=== PATIENT | female | born 1970 | race African-American/Black ===

== ENCOUNTER 2018-05-26 19:14 | Inpatient (IN) | payer OTHER ==
[~2018-05-26] VITALS: Ht 182.9 cm; Wt 105.8 kg
[~2018-05-26 19:14] MED LIST: ETOMIDATE 2MG/ML 10ML VIAL IV ONE; VITAMINS
[2018-05-26] MEDS ORDERED: SODIUM CHLORIDE 0.9% 1,000 ML IV SCH (19:16)
[2018-05-26] MEDS ORDERED: ALBUTEROL (0.083%) 2.5MG/3ML NEB HHN STA (19:19)
[2018-05-26] MEDS ORDERED: MAGNESIUM 2 G PREMIX 50 ML IV STA (19:19)
[2018-05-26] MEDS ORDERED: IPRATROPIUM BROMIDE (0.02%) 0.5MG/2.5ML NEB HHN STA (19:19)
[2018-05-26] MEDS ORDERED: EPINEPHRINE 1:1000 1 MG/ML AMP ONE (19:26)
[2018-05-26] MEDS ORDERED: DIPHENHYDRAMINE 50MG/ML VIAL IV ONE (19:30)
[2018-05-26] MEDS ORDERED: EPINEPHRINE 1:1000 1 MG/ML AMP IM ONE (19:30)
[2018-05-26] MEDS ORDERED: METHYLPREDNISOLONE SOD SUCC 125 MG/2 ML VIAL IV ONE (19:30)
[2018-05-26] MEDS ORDERED: ACETAMINOPHEN 650MG SUPP PR ONE (19:30)
[2018-05-26] MEDS ORDERED: FAMOTIDINE 20MG/2ML VIAL IV ONE (19:30)
[2018-05-26] MEDS ORDERED: ETOMIDATE 2MG/ML 10ML VIAL IV ONE (19:50)
[2018-05-26] MEDS ORDERED: SUCCINYLCHOLINE CHLORIDE 200MG/10ML IV ONE (19:50)
[2018-05-26 19:51] LABS: BASOPHILS % 0.3 % (0.0-2.0); EOSINOPHILS % 0.7 % (0.0-5.0); HEMATOCRIT. 47.5 % (36.0-48.0); HEMOGLOBIN. 15.3 g/dL (12.0-16.0); LYMPHOCYTES % 45.7 % (20.0-50.0); MEAN CORPUSCULAR HEMOGLOBIN 29.8 pg (28.0-32.0); MEAN CORPUSCULAR VOLUME 92.4 fL (81.0-99.0); MEAN PLATELET VOLUME 9.1 fl (7.4-10.4); MONOCYTES % 7.2 % (2.0-8.0); NEUTROPHILS % 46.1 % (40.0-76.0); PLATELET 356 x1000/uL (130-400); RED BLOOD CELL COUNT 5.14 mill/uL (4.2-5.4)
[2018-05-26 19:57] LABS: PROTHROMBIN TIME 10.2 sec (9.1-11.1)
[2018-05-26 20:00] LABS: CHLORIDE 107 mEq/L (98-107)
[2018-05-26] MEDS ORDERED: MIDAZOLAM HCL 2 MG/2 ML VIAL IV ONE (20:00)
[2018-05-26 20:02] LABS: HCG SCREEN NEGATIVE
[2018-05-26 20:05] LABS: ETHANOL BLOOD 56 mg/dL
[2018-05-26] MEDS ORDERED: MIDAZOLAM HCL 2 MG/2 ML VIAL ONE (20:07)
[2018-05-26] MEDS ORDERED: PROPOFOL 200MG/20ML VIAL IV ONE (20:30)
[2018-05-26] MEDS ORDERED: PIPERACILLIN/TAZ 3.375G PREMIX 50 ML IV ONE (20:45)
[2018-05-26] MEDS ORDERED: VANCOMYCIN 1 G PREMIX 200 ML IV ONE (20:45)
[2018-05-26 20:59] LABS: BG BASE EXCESS -6.2 mmol/L (-2.0-2.0); BG CARBOXYHEMOGLOBIN 0.5 % (0.5-1.5); BG DEOXYHEMOGLOBIN 0.6 % (0.0-5.0); BG FRACTION INSPIRED OXYGEN 100; BG HCO3 ACT 20.9 mmol/L (22.0-26.0); BG METHEMOGLOBIN 0.6 % (0.0-1.5); BG OXYGEN SATURATION 99.4 % (92.0-98.5); BG OXYHEMOGLOBIN 98.3 % (94.0-97.0); BG PCO2 46.9 mmHg (35.0-45.0); BG PH 7.266 (7.350-7.450); BG SAMPLE SITE RIGHT RADIAL; BG TIDAL VOLUME(mL) 500 mL; BG TOTAL HEMOGLOBIN 15.2 g/dL (12.0-18.0); BG VENT MODE VENT - A/C; BG VENT RATE 14 set
[2018-05-26] MEDS ORDERED: PIPERACILLIN/TAZ 3.375G PREMIX 50 ML IV SCH (21:15)
[2018-05-26] MEDS ORDERED: LORAZEPAM 2MG/ML CPJ IV PRN (21:15)
[2018-05-26] MEDS ORDERED: PROPOFOL 10MG/ML 100ML 100 ML IV ONE (21:15)
[2018-05-26] MEDS ORDERED: ONDANSETRON HCL 4MG/2ML INJ IV PRN (21:15)
[2018-05-26 21:51] LABS: CLARITY URINE CLEAR (CLEAR); COLOR URINE YELLOW (YELLOW); KETONES URINE NEGATIVE (NEGATIVE); LEUKOCYTE ESTERASE URINE NEGATIVE (NEGATIVE); NITRITE URINE NEGATIVE (NEGATIVE); OCCULT BLOOD URINE 2+ (NEGATIVE); PROTEIN URINE 2+ (NEGATIVE); SPECIFIC GRAVITY URINE 1.013 (1.005-1.030); UROBILINOGEN URINE 0.2 E.U./dL (0.2-1.0)
[2018-05-26 22:05] LABS: CREATINE KINASE MB FRACTION 3.6 ng/mL (0.5-3.6)
[2018-05-26] MEDS ORDERED: SODIUM CHLORIDE 0.9% 1000ML BAG (SEPSIS BOLUS) IV ONE (22:15)
[2018-05-26 22:27] LABS: *AMPHETAMINES SCREEN URINE NEGATIVE (NEGATIVE); *BARBITURATES SCREEN URINE NEGATIVE (NEGATIVE)
[2018-05-26 22:28] LABS: *BENZODIAZEPINES SCREEN URINE PRESUMTIVE POSITIVE (NEGATIVE); *COCAINE SCREEN URINE PRESUMTIVE POSITIVE (NEGATIVE); CANNABINOID URINE SCREEN NEGATIVE (NEGATIVE); METHADONE URINE SCREEN NEGATIVE (NEGATIVE); OPIATES URINE SCREEN NEGATIVE (NEGATIVE); PHENCYCLIDINE URINE SCREEN NEGATIVE (NEGATIVE)
[2018-05-26 23:40] VITALS: BP 148/135
[2018-05-26 23:46] VITALS: BP 142/92
[2018-05-27] VITALS (47 sets, daily range): BP systolic 114–192; BP diastolic 54–155
[2018-05-27] MEDS: DEXT 5%/0.45% NACL KCL 10MEQ/L 1,000 ML IV SCH ×2 (01:48→18:00)
[2018-05-27] MEDS ORDERED: FENTANYL CITRATE/PF 500 MCG in SODIUM CHLORIDE 0.9% 40 ML IV PRN (03:15)
[2018-05-27] MEDS ORDERED: ONDANSETRON HCL 4MG/2ML INJ IV PRN (03:15)
[2018-05-27] MEDS ORDERED: HYDRALAZINE 20MG/ML VIAL IV PRN (03:15)
[2018-05-27] MEDS: PROPOFOL 10MG/ML 100ML 100 ML IV PRN ×2 (03:53→07:24)
[2018-05-27] MEDS ORDERED: VANCOMYCIN 1 G PREMIX 200 ML IV SCH (04:00)
[2018-05-27 05:47] LABS: HEMATOCRIT. 43.7 % (36.0-48.0); HEMOGLOBIN. 14.3 g/dL (12.0-16.0); MEAN CORPUSCULAR VOLUME 91.9 fL (81.0-99.0); MEAN PLATELET VOLUME 9.4 fl (7.4-10.4); PLATELET 272 x1000/uL (130-400); RED BLOOD CELL COUNT 4.76 mill/uL (4.2-5.4)
[2018-05-27] MEDS ORDERED: PIPERACILLIN/TAZ 3.375G PREMIX 50 ML IV SCH (06:00)
[2018-05-27 06:02] LABS: CHLORIDE 111 mEq/L (98-107)
[2018-05-27 06:27] LABS: CREATINE KINASE MB FRACTION 6.5 ng/mL (0.5-3.6)
[2018-05-27 06:38] LABS: CREATINE KINASE 5236 IU/L (26-192)
[2018-05-27 08:02] LABS: BG BASE EXCESS -4.2 mmol/L (-2.0-2.0); BG CARBOXYHEMOGLOBIN 0.3 % (0.5-1.5); BG DEOXYHEMOGLOBIN 1.8 % (0.0-5.0); BG HCO3 ACT 21.3 mmol/L (22.0-26.0); BG METHEMOGLOBIN 0.3 % (0.0-1.5); BG OXYGEN SATURATION 98.2 % (92.0-98.5); BG OXYHEMOGLOBIN 97.6 % (94.0-97.0); BG PCO2 40.9 mmHg (35.0-45.0); BG PH 7.335 (7.350-7.450); BG PO2 129.9 mmHg (75.0-100.0); BG SAMPLE SITE RIGHT RADIAL; BG TIDAL VOLUME(mL) 500 mL; BG VENT MODE VENT - A/C; BG VENT RATE 18 set
[2018-05-27] MEDS: ENOXAPARIN 30MG/0.3ML SYR SUBCUT SCH ×2 (09:58→21:05)
[2018-05-27 10:13] LABS: PLATELET ESTIMATE NORMAL
[2018-05-27 12:20] LABS: BG BASE EXCESS -2.1 mmol/L (-2.0-2.0); BG CARBOXYHEMOGLOBIN 0.2 % (0.5-1.5); BG CPAP (cmH2O) 0 cm(H2O); BG DEOXYHEMOGLOBIN 3.3 % (0.0-5.0); BG METHEMOGLOBIN 0.2 % (0.0-1.5); BG OXYGEN SATURATION 96.7 % (92.0-98.5); BG OXYHEMOGLOBIN 96.3 % (94.0-97.0); BG PCO2 40.5 mmHg (35.0-45.0); BG PH 7.372 (7.350-7.450); BG PO2 86.6 mmHg (75.0-100.0); BG SAMPLE SITE RIGHT RADIAL; BG TOTAL HEMOGLOBIN 14.7 g/dL (12.0-18.0); BG VENT MODE VENT - CPAP
[2018-05-27] MEDS: PIPERACILLIN/TAZ 3.375G PREMIX 50 ML IV SCH ×2 (13:24→17:00)
[2018-05-27] MEDS: VANCOMYCIN 1500MG in DEXTROSE 5% WATER 250ML IV SCH (18:00)
[2018-05-28] VITALS (20 sets, daily range): BP systolic 98–146; BP diastolic 70–98
[2018-05-28] MEDS: PIPERACILLIN/TAZ 3.375G PREMIX 50 ML IV SCH ×3 (00:26→11:56)
[2018-05-28] MEDS: VANCOMYCIN 1500MG in DEXTROSE 5% WATER 250ML IV SCH (06:46)
[2018-05-28] MEDS: ENOXAPARIN 30MG/0.3ML SYR SUBCUT SCH (09:24)
[2018-05-28 09:50] LABS: BASOPHILS % 0.3 % (0.0-2.0); EOSINOPHILS % 0.3 % (0.0-5.0); HEMATOCRIT. 38.8 % (36.0-48.0); HEMOGLOBIN. 12.8 g/dL (12.0-16.0); LYMPHOCYTES % 18.5 % (20.0-50.0); MEAN CORPUSCULAR VOLUME 90.7 fL (81.0-99.0); MEAN PLATELET VOLUME 9.1 fl (7.4-10.4); MONOCYTES % 5.1 % (2.0-8.0); NEUTROPHILS % 75.8 % (40.0-76.0); PLATELET 244 x1000/uL (130-400); RED BLOOD CELL COUNT 4.28 mill/uL (4.2-5.4); RED CELL DISTRIBUTION WIDTH 13.9 % (11.6-14.6)
[2018-05-28 09:53] LABS: CHLORIDE 107 mEq/L (98-107)
[2018-05-28] MEDS ORDERED: POTASSIUM CHLORIDE 20MEQ TABLET SR PO NR (11:15)
== END 2018-05-28 13:38 | disposition left against medical advice (07) | DRG 853 ==
LOC: ER 19:14 → EDBEDREQSVC 20:04 → EDBEDREQTM 20:04 → EDBEDREQ 20:04 → MICUNO 20:43 → EDBEDREQ 20:50 → EDBEDREQTM 20:50 → ENRESERV 22:45 → MICUNO 05-27 00:29
PROVIDERS: ADMIT Hospitalist; ATTEND Hospitalist
PROC: 5A1935Z Respiratory Ventilation, Less than 24 Consecutive Hours (ICD-10-PCS; principal; 2018-05-26)
PROC: 0WCQ8ZZ Extirpation of Matter from Respiratory Tract, Via Natural or Artificial Opening Endoscopic (ICD-10-PCS; 2018-05-26)
PROC: 0BH18EZ Insertion of Endotracheal Airway into Trachea, Via Natural or Artificial Opening Endoscopic (ICD-10-PCS; 2018-05-26)
PROC: 5A09357 Assistance with Respiratory Ventilation, Less than 24 Consecutive Hours, Continuous Positive Airway Pressure (ICD-10-PCS; 2018-05-26)
DX: A41.9 Sepsis, unspecified organism (principal); G92 Toxic encephalopathy; J96.01 Acute respiratory failure with hypoxia; J69.0 Pneumonitis due to inhalation of food and vomit; T40.5X1A Poisoning by cocaine, accidental (unintentional), initial encounter; Z53.21 Procedure and treatment not carried out due to patient leaving prior to being seen by health care provider; Z82.49 Family history of ischemic heart disease and other diseases of the circulatory system; Z90.710 Acquired absence of both cervix and uterus; Y92.89 Other specified places as the place of occurrence of the external cause; Z79.899 Other long term (current) drug therapy
CPT/HCPCS: 31500; 36415; 36600; 71045; 74176; 80048; 80305; 80307; 80329; 82375; 82550; 82553; 82805; 82962; 83605; 83880; 84145; 84478; 84484; 84703; 86850; 86900; 93005; 93970; 94002; 94003; 94644; 96365; 96372; 96375; 99291; G0482; J0330; J1200; J1650; J2250; J2405; J2543; J2704; J2930; J3370; J3475; J3490; J7040; J7050; J7060; J7611; A4315